=== PATIENT | female | born 1970 | race Asian ===

== ENCOUNTER → 2016-04-09 | Outpatient (CLI) | payer OTHER ==
--- NOTE | 2016-04-09 13:32 | Discharge Instructions ---
Discharge Instructions Procedure Procedure Date: Apr 09, 2016. Reason for visit: Right Calcs--Needs [employer]. Discharge Discharge Date: Apr 09, 2016. Discharge Diagnosis: post right breast stereotactic guided biopsy Instructions Activity Recommendations: Additional Limitations (see below) Return to School/Work: no limitations Recommended Home Diet: No Limitations Provider Instructions: ACTIVITY RECOMMENDATIONS: * No lifting, pushing, pulling or exercising the affected side for three days. RETURN TO SCHOOL/WORK: * You may return to work/school after the procedure, but do not perform any strenuous activities for 24 to 48 hours. MEDICATIONS: * Tylenol (two 325 mg) every four to six hours if needed for mild pain (if not allergic to Tylenol). DIET: * Resume previous diet. SPECIAL CARE INSTRUCTIONS: * Keep biopsy site dry for 24 hours. May shower after 24 hours, but do not soak (bathe) incision. * May remove Tegaderm (plastic patch) tomorrow AFTER showering. * Leave the steri-strips on for one week. Allow the steri-strips to fall off by themselves. If not off after one week, you may remove them. You may place a Bandaid crosswise over the strips, if desired. * Apply ice 10 minutes on and 10 minutes off as needed. * Wear a bra at bedtime to sleep more comfortably for 2-3 days. * Your referring physician should have the results after approximately 5 to 7 business days. * Call for unusual bleeding, fever, drainage, etc or if you have any questions call [phone] during normal business hours or after hours call Dr Ruiz, . FOLLOW UP VISIT: Follow-up with Referring Physician as scheduled. Kelsie Yu Recommendations: Call your doctor if: * Temperature above 101 degrees * Pain not relieved by pain medicine ordered * There is increased drainage or redness from any incision * You have any unanswered questions or concerns. Your Doctors Instructions noted above were prepared by provider Mary Jane Ruiz. Patient Signature Section: Patient Instructions Signature Page Giancarlodonita Jack Patient (or Guardian) Signature/Date: I have read and understand the instructions given to me by my caregivers. Caregiver/RN/Doctor Signature/Date: The above-named patient and/or guardian has received patient instructions on this date. + Original Patient Signature Page (only) stays with chart. Please make copy for patient.
--- NOTE | 2016-04-09 15:48 | MAMMOGRAPHY REPORT ---
STEREOTACTIC GUIDED BIOPSY RIGHT BREAST: 04/09/2016 CLINICAL HISTORY: 45-year-old woman with indeterminate clustered microcalcifications and associated asymmetry in the lower outer posterior right breast. She presents for stereotactic biopsy. History of prior benign ultrasound-guided core biopsy in the 7:00 anterior right breast. COMPARISON: Comparison is made to exams dated: 09/22/2015 mammogram, 03/22/2015 mammogram, 5 mammogram, 09/22/2015 ultrasound, 03/30/2015 ultrasound biopsy, and 11/10/2013 mammogram - [facility]. PATIENT CONSENT: After explaining the risks, benefits and alternatives of the procedure to the patie nt, informed consent was obtained both verbally and in writing. Specific risks include: Bleeding, i nfection, puncture of adjacent structure, nontarget biopsy, sampling error and medication reaction. PROCEDURE DESCRIPTION: A time-out was performed and the right breast was confirmed as the site of bi opsy. The patient was placed prone on the stereotactic biopsy table and the breast was placed in CC from below compression. A top lift cutter image was obtained that demonstrated the clustered microcalcificatio ns in question. They are amenable to sterotactic biopsy. Then +15 and -15 stereo pair images were obtained. The calcifications were targeted utilizing the coordinates obtained by the computer. The skin was prepped with Betadine. 1% Lidocaine with and without epinipherine was administered as loca l anesthesia. A small skin incision was made. Through the incision, the needle was inserted to the depth determined by the computer. 6 samples were obtained using a [employer] 9-gauge vacuum-assiste d biopsy device. The specimen radiograph demonstrated several medical service representative microcalcifications, th erefore, a metallic marker was placed at the biopsy site. There was no immediate complication. Hemos tasis was achieved after several minutes of manual compression. The samples were sent to pathology in an appropriately labeled container; they were not as 1-2 calcifications were noted with in each core specimen. Postprocedure CC and ML views of the right breast demonstrate a new dumbbell shaped metallic biopsy marker and no significant hematoma in the 9:00 posterior breast, at the site of the biopsied cluster ed microcalcifications and associated asymmetry.. IMPRESSION: STEREOTACTIC GUIDED BIOPSY Status post stereotactic guided biopsy of clustered microcalcifications and associated asymmetry in the 9:00 posterior right breast, with dumbbell shaped metallic biopsy marker placed at the site. The patient will receive notification of the biopsy results from her referring physician. Mary Jane Ruiz M.D. ay/:04/09/2016 13:47:10 Attending Technologist: Afsaneh Hubbard RT(R)(M), [facility] Leather Seasoner: Hazel Sher RT(R)(M), [facility]
== END | disposition home or self-care (01) ==
LOC: C.MAMM 12:36
PROVIDERS: ATTEND Family Medicine
DX: R92.1 Mammographic calcification found on diagnostic imaging of breast (principal); N60.91 Unspecified benign mammary dysplasia of right breast

== ENCOUNTER → 2016-06-13 | Day surgery (SDC) | payer OTHER ==
[2016-06-05 13:56] VITALS: Ht 170.2 cm; Wt 66.4 kg
[~2016-06-13] VITALS: Ht 170.2 cm; Wt 66.4 kg
[~2016-06-13] MED LIST: ETOMIDATE 2 MG/ML 20 ML VIAL IV ONE; LIDOCAINE HCL 2% 2 ML VIAL (20MG/ML) ONE; PROPOFOL IV EMULSION 10 MG/ML 20 ML VIAL IV ONE; SODIUM CHLORIDE 0.9% 500ML 500 ML IV ONE
--- NOTE | 2016-06-13 13:38 | Endo History and Physical ---
History & Physical Date of Service: Jun 13, 2016. Chief Complaint: Constipation Referring Physician: Dr Barron History of Present Illness constipation Past Surgical History Hx Cardiac Surgery: No Hx Internal Defibrillator: No Hx Pacemaker: No Hx Abdominal Surgery: No Hx of Implantable Prosthesis: No Hx Cancer Surgery: No Hx Thoracic Surgery: No Hx Orthopedic: No Hx Urinary Tract Surgery: No Family History None Social History Smoking Status: Never Smoker Hx Substance Use: No Hx Alcohol Use: No Allergies Coded Allergies: No Known Allergies (Unverified , 06/13/16) Current Medications Reported Home Medications Medications Dose Route/Sig Max Daily Dose Days Date Category No Active Prescriptions or Reported Medications Rx Vital Signs Weight (Kilograms): 66.36 Height (Feet): 5 Height (Inches): 7 Date Time Temp Pulse Resp B/P Pulse Ox O2 Delivery O2 Flow Rate FiO2 06/13/16 12:31 36.3 60 16 116/67 96 Room Air Physical Exam AAO x3 Nl s1s2 Lungs CTA Abd soft NT/ND + BS - CCE Assessment and Plan colonoscopy
--- NOTE | 2016-06-13 14:13 | Discharge Instructions ---
Endoscopy Patient Instructions Date / Procedure(s) Performed Jun 13, 2016. Colonoscopy Allergy Information Coded Allergies: No Known Allergies (Unverified , 06/13/16) Discharge Date / Findings Jun 13, 2016. lypmphoid hyperplasia Medication Instructions Restart Stopped Medication(s): Reported Home Medications Medications Dose Route/Sig Max Daily Dose Days Date Category No Active Prescriptions or Reported Medications Rx Reported Home Medications Medications Dose Route/Sig Max Daily Dose Days Date Category No Active Prescriptions or Reported Medications Rx Provider Instructions Activity Restrictions - No exercising or heavy lifting for 24 hours. - Do not drink alcohol the day of the procedure. - Do not drive a car or operate machinery until the day after the procedure. - Do not make any important decisions or sign important papers in 24 hours after the procedure. Following Day: - Return to full activity which may include returning to work/school. Diet Start your diet with liquids and light foods (jello, soup, juice, toast). Then eat your usual diet if not nauseated. Treatment For Common After Affects For mild abdominal pain, bloating, or excessive gas: - Rest - Eat lightly - Lie on right side Follow-Up Information Follow-up with Dr Barron as scheduled Anesthesia Information What You Should Know You have had a procedure that required some medicine to reduce anxiety and discomfort. This treatment is called moderate sedation. After receiving the treatment, you may be sleepy, but you will be able to breathe on your own. The effects of the treatment may last for several hours. Follow these instructions along with Activity/Diet recommendations noted above: * Do NOT do anything where dizziness or clumsiness would be dangerous. * Rest quietly at home today, then you can be up and about tomorrow. * Have a responsible person stay with you the rest of today. * You may have had an I.V. today. If so, you may take the dressing off later today. Recommendations Call your doctor if: * Trouble breathing * Continuous vomiting for more than 24 hours * Temperature above 101 degrees * Severe abdominal pain or bloating * Pain not relieved by pain medicine ordered * There is increased drainage or redness from any incision * A large amount of rectal bleeding greater than 2-3 tablespoons. (If you had a polyp/s removed or have hemorrhoids, a small amount of blood - from the rectum is to be expected.) * You have any unanswered questions or concerns. IN THE EVENT OF A SERIOUS EMERGENCY, GO TO THE NEAREST EMERGENCY ROOM Your discharge instructions were prepared by provider Chris Ortiz. Patient Instructions Signature Page Shmueladwoa Jack Patient (or Guardian) Signature/Date: I have read and understand the instructions given to me by my caregivers. Caregiver/RN/Doctor Signature/Date: The above-named patient and/or guardian has received patient instructions on this date. + Original Patient Signature Page (only) stays with chart. Please make copy for patient.
--- NOTE | 2016-06-13 14:22 | Anesthesiology Progress Note ---
Anesthesia Post Op Note Date & Time Jun 13, 2016 at 14:21 Vital Signs Pain Intensity: 0 Vital Signs Past 12 Hours Date Time Temp Pulse Resp B/P Pulse Ox O2 Delivery O2 Flow Rate FiO2 06/13/16 14:09 60 16 109/68 100 Room Air 06/13/16 12:31 36.3 60 16 116/67 96 Room Air Notes Mental Status: alert / awake / arousable, participated in evaluation Pt Amnestic to Procedure: Yes Nausea / Vomiting: adequately controlled Pain: adequately controlled Airway Patency, RR, SpO2: stable & adequate BP & HR: stable & adequate Hydration State: stable & adequate Anesthetic Complications: no major complications apparent Pt doing well.
[2016-06-13 14:40] VITALS: BP 109/65; PULSE 55; O2SAT 100
--- NOTE | 2016-06-14 00:44 | GI REPORT ---
Procedure Date: 06/13/2016 1:04 PM Procedure: Colonoscopy Indications: Change in bowel habits, Constipation, No prior study; no wt loss; no rectal bleeding; no recent medication or diet changes; no FH of CRC or IBD; no abd pain Medicines: Propofol per Anesthesia Complications: No immediate complications. Estimated blood loss: Minimal. Estimated Blood Loss: Estimated blood loss was minimal. Procedure: Pre-Anesthesia Assessment: - Prior to the procedure, a History and Physical was performed, and patient medications and allergies were reviewed. The patient's tolerance of previous anesthesia was also reviewed. The risks and benefits of the procedure and the sedation options and risks were discussed with the patient. All questions were answered, and informed consent was obtained. Prior Anticoagulants: The patient has taken no previous anticoagulant or antiplatelet agents. ASA Grade Assessment: II - A patient with mild systemic disease. After reviewing the risks and benefits, the patient was deemed in satisfactory condition to undergo the procedure. After I obtained informed consent, the scope was passed under direct vision. Throughout the procedure, the patient's blood pressure, pulse, and oxygen saturations were monitored continuously. The scope was introduced through the anus and advanced to the terminal ileum, with identification of the appendiceal orifice and IC valve. The colonoscopy was performed without difficulty. The patient tolerated the procedure well. The quality of the bowel preparation was good. Findings: The perianal and digital rectal examinations were normal. Pertinent negatives include normal sphincter tone, no palpable rectal lesions and no anal lesion or abnormality was detected. A localized area of mucosa in the terminal ileum was congested and thickened folds of the. Biopsies were taken with a cold forceps for histology. Estimated blood loss was minimal. Verification of patient identification for the specimen was done by the physician and emissions repair technician using the patient's name and medical record number. The exam was otherwise without abnormality. Non-bleeding internal hemorrhoids were found during retroflexion. The hemorrhoids were mild, small and Grade I (internal hemorrhoids that do not prolapse). Impression: - Congested and thickened folds of the mucosa in the terminal ileum. Biopsied. - The examination was otherwise normal. - Non-bleeding internal hemorrhoids. Recommendation: - Discharge patient to home (ambulatory). - Resume previous diet. - Continue present medications. - Await pathology results. - Return to referring physician as previously scheduled. MD Chris Sorto MD 06/13/2016 2:19:19 PM This report has been signed electronically. Note Initiated On: 06/13/2016 1:04 PM I attest to the content of the Intraoperative Record and orders documented therein, exceptions below
== END | disposition home or self-care (01) ==
LOC: C.GI 12:12
PROVIDERS: ATTEND Internal Medicine Gastroenterology
DX: K59.00 Constipation, unspecified (principal); R19.4 Change in bowel habit; K64.8 Other hemorrhoids; K63.89 Other specified diseases of intestine

== ENCOUNTER → 2017-05-30 | Outpatient (CLI) | payer OTHER ==
--- NOTE | 2017-05-31 14:44 | MAMMOGRAPHY REPORT ---
BILATERAL DIGITAL SCREENING MAMMOGRAM TOMOSYNTHESIS WITH CAD: 05/30/2017 CLINICAL HISTORY: Routine screening. Patient has no complaints. TECHNIQUE: Breast tomosynthesis in addition to standard 2D mammography was performed. Current study was also evaluated with a Computer Aided Detection (CAD) system. COMPARISON: Comparison is made to exams dated: 03/26/2016 ultrasound, 03/26/2016 mammogram, 6 breast MRI, 09/22/2015 ultrasound, 09/22/2015 mammogram, and 09/22/2015 ultrasound - [facility]. BREAST COMPOSITION: The tissue of both breasts is heterogeneously dense, which may obscure small mas ses. FINDINGS: There are 2 stable metallic biopsy marker clips in the inferior right breast, and a stable focal asymmetry in the upper outer middle one third of the left breast, that appears similar on all a vailable prior mammograms dating back to at least 12/19/2010, therefore likely benign. No new suspic ious mass, architectural distortion or cluster of microcalcifications is seen. IMPRESSION: ACR BI-RADS CATEGORY 1: NEGATIVE There is no mammographic evidence of malignancy. A 1 year screening mammogram is recommended. The pa tient will receive written notification of the results. Approximately 10% of breast cancers are not detected with mammography. A negative mammographic report should not delay biopsy if a clinically suggestive mass is present. Mary Jane Ruiz M.D. ay/:05/30/2017 15:42:[address] Production Manager: Rina Boyce, [facility] letter sent: Normal 1/2 BI-RADS Code: ACR BI-RADS Category 1: Negative
== END | disposition home or self-care (01) ==
LOC: C.MAMM 09:38
PROVIDERS: ATTEND Family Medicine
DX: Z12.31 Encounter for screening mammogram for malignant neoplasm of breast (principal)